=== PATIENT | female | born 1990 | race Caucasian/White ===

== ENCOUNTER → 2019-03-12 | Outpatient (CLI) | payer OTHER ==
--- NOTE | 2019-03-12 08:57 | REP ---
MR BRAIN WITHOUT CONTRAST: HISTORY: Migraine headaches. There are no areas of abnormal signal intensity in the brain. There is no intraparenchymal hemorrhage, infarct, mass or midline shift. The ventricular system is normal in appearance. There is no extracerebral collection. The cerebellar tonsils extend 3 mm inferior through the foramen magnum. The sinuses are clear. IMPRESSION:There is no intracranial lesion. Electronically Signed by Roddy Conroy MD 03/12/2019 09:16 A
== END ==
LOC: M RAD 07:22
PROVIDERS: ATTEND Physician Assistant
DX: G43.109 Migraine with aura, not intractable, without status migrainosus (principal); G44.209 Tension-type headache, unspecified, not intractable; H93.13 Tinnitus, bilateral

== ENCOUNTER → 2019-07-26 | Outpatient (CLI) | payer OTHER ==
[2019-07-26 19:12] LABS: BASO % 0.2 % (0.0-1.0); EOS % 0.3 % (0.0-3.0); HEMATOCRIT 39.6 % (36.0-47.0); HEMOGLOBIN 13.5 g/dl (12.0-15.5); LYMPH # 2.4 10^3/uL (1.5-5.0); LYMPH % 19.1 % (24.0-44.0); MEAN CORPUSCULAR HGB CONC 34.1 g/dl (32.0-36.5); MONO # 0.8 10^3/uL (0.0-0.8); MONO % 6.1 % (0.0-5.0); NEUTROPHILS # 9.2 10^3/uL (1.5-8.5); PLATELET COUNT, AUTOMATED 293 10^3/uL (150-450); WHITE BLOOD COUNT 12.5 10^3/uL (4.0-10.0)
[2019-07-26 21:03] LABS: CHLAMYDIA DNA AMPLIFICATION NEGATIVE (NEGATIVE); GC DNA AMPLIFICATION NEGATIVE (NEGATIVE)
[2019-07-29 10:52] LABS: HIV 1&2 SCREEN CENTAUR NEGATIVE (NEGATIVE); RUBELLA IgG QUALITATIVE IMMUNE (IMMUNE)
[2019-07-29 11:08] LABS: HEPATITIS C VIRUS ABY INDEX 0.2 INDEX (<0.8)
== END ==
LOC: M SMT 14:23
PROVIDERS: ATTEND Advanced Practice Midwife
DX: Z34.81 Encounter for supervision of other normal pregnancy, first trimester (principal); Z3A.00 Weeks of gestation of pregnancy not specified

== ENCOUNTER → 2019-09-17 | Outpatient (CLI) | payer OTHER ==
--- NOTE | 2019-09-18 09:22 | REP ---
OB ULTRASOUND: Real-time sonographic evaluation of the gravid uterus performed. There is a single living intrauterine gestation. The estimated gestational age is 19 weeks 6 days based on today's ultrasound measurement with [facility] 02/05/2020. Biometry and Growth: BPD 46 mm = 19 weeks 6 days, 50th percentile HC 163 mm = 19 weeks 0 days, 26th percentile AC 146 mm = 19 weeks 6 days, 52nd percentile FL 32 mm = 19 weeks 6 days, 52nd percentile HC/AC ratio 1.11 within normal range. Estimated weight 315 grams 47th percentile. SEEN/GROSSLY UNREMARKABLE Lateral ventricles Yes Posterior fossa Yes Upper lip Yes Four-chamber heart Yes LVOT Yes RVOT Yes Stomach Yes Cord insertion Yes Three vessel cord Yes Kidneys Yes Bladder Yes Spine Yes Cervical length: Closed and measures 5.4 cm in length. heart rate: 141 beats per minute. position: Variable Placenta: Anterior and grade 0 with no previa or abruption. Amniotic fluid: Within normal limits. Electronically Signed by Rafael Triplett MD 09/20/2019 05:20 P
== END ==
LOC: M RAD 13:25
PROVIDERS: ATTEND Advanced Practice Midwife
DX: Z36.3 Encounter for antenatal screening for malformations (principal); Z3A.19 19 weeks gestation of pregnancy

== ENCOUNTER → 2019-12-10 | Outpatient (CLI) | payer OTHER ==
[2019-12-10 17:43] LABS: HEMATOCRIT 37.9 % (36.0-47.0); MEAN CORPUSCULAR HEMOGLOBIN 30.1 pg (27.0-33.0); MEAN CORPUSCULAR HGB CONC 34.3 g/dl (32.0-36.5); MEAN CORPUSCULAR VOLUME 87.7 fl (80.0-96.0); PLATELET COUNT, AUTOMATED 260 10^3/uL (150-450); RED BLOOD COUNT 4.32 10^6/uL (4.00-5.40); WHITE BLOOD COUNT 12.5 10^3/uL (4.0-10.0)
== END ==
LOC: M LAB 15:40
PROVIDERS: ATTEND Advanced Practice Midwife
DX: Z34.02 Encounter for supervision of normal first pregnancy, second trimester (principal); Z36.89 Encounter for other specified antenatal screening

== ENCOUNTER → 2019-12-24 | Outpatient (CLI) | payer OTHER ==
--- NOTE | 2019-12-24 18:38 | REP ---
Clinical: Anatomical evaluation. Comparison: Growth 09/17/2019 . Findings: Examination demonstrates a single live intrauterine in breech presentation. motion is identified by technologist. Placenta is noted anterior and grade I I without evidence for placenta previa or abruption. Amniotic fluid volume is normal. Cervix measures 4.0 cm in length and appears closed. No evidence for nuchal cord. Gestational age by first US 33 weeks 6 days with ELIZABETH 02/05/2020 . Gestational age by current measurements 33 weeks 4-day with ELIZABETH 02/07/2020 FHR equals 147 beats per minute. Estimated weight 2217 grams (40th percentile). Amniotic fluid index: 14.0 cm Umbilical cord SD ratio: 2.19 (2.00 - 3.00) Impression: Single live advanced gestation in breech presentation demonstrating appropriate estimated weight. Amniotic fluid volume normal. Electronically Signed by Buck Mckeon MD 12/24/2019 06:29 P
== END ==
LOC: M RAD 17:32
PROVIDERS: ATTEND Advanced Practice Midwife
DX: O26.843 Uterine size-date discrepancy, third trimester (principal); O32.1XX0 Maternal care for breech presentation, not applicable or unspecified; Z3A.33 33 weeks gestation of pregnancy

== ENCOUNTER → 2020-01-22 | Outpatient (REF) | payer OTHER | LOC: M PLALAB 10:18 | PROVIDERS: ATTEND Advanced Practice Midwife | DX: Z36.89 Encounter for other specified antenatal screening (principal); Z3A.00 Weeks of gestation of pregnancy not specified ==

== ENCOUNTER 2020-01-31 09:18 | Outpatient (CLI) | payer OTHER ==
[~2020-01-31] VITALS: Ht 160 cm; Wt 101.1 kg
[2020-01-31 09:45] VITALS: BP 130/79
[2020-01-31] MEDS ORDERED: MAPA500T2 PO (09:47)
[2020-01-31] MEDS ORDERED: PRENTAB9 PO (09:47)
[2020-01-31] MEDS ORDERED: TUMS500C PO (09:47)
[2020-01-31] MEDS ORDERED: TERBUTALINE SULFATE 1 MG/ML VIAL (J3105) SC ONE (10:00)
[2020-01-31 10:18] LABS: HEMATOCRIT 37.7 % (36.0-47.0); MEAN CORPUSCULAR HEMOGLOBIN 29.5 pg (27.0-33.0); MEAN CORPUSCULAR HGB CONC 34.5 g/dl (32.0-36.5); MEAN CORPUSCULAR VOLUME 85.7 fl (80.0-96.0); PLATELET COUNT, AUTOMATED 226 10^3/uL (150-450); WHITE BLOOD COUNT 10.9 10^3/uL (4.0-10.0)
[2020-01-31 10:59] VITALS: BP 132/91
--- NOTE | 2020-01-31 11:42 | ROOPDOC ---
[facility] Report Of Operation Report of Operation DATE OF PROCEDURE: 01/31/20 PREOPERATIVE DIAGNOSES: 1. Intrauterine at 38 weeks estimated gestational age. 2. Malpresentation with the in heath breech presentation. POSTOPERATIVE DIAGNOSES: 1. Intrauterine at 38 weeks estimated gestational age. 2. Malpresentation with the in heath breech presentation. 3. Status post external cephalic version, unsuccessful. OPERATIVE PROCEDURE: Attempted external cephalic version. SURGEON: Bennett Carrera M.D. HIGH SCHOOL COMBINATION TEACHER: Rupa Elam CNM ANESTHESIA: none SPECIMENS: None. ESTIMATED BLOOD LOSS: None. URINE OUTPUT: Undetermined. OPERATIVE FINDINGS: On ultrasound, amniotic fluid index was 10 cm. Posterior placenta. Fetus in heath breech presentation. INDICATION FOR PROCEDURE: Mrs. Tolliver is a 29-year-old 1 who presents at 38+ weeks estimated gestational age for scheduled cephalic version for malpresentation. The patient has been thoroughly counseled for management options to include expected management, primary low transverse section at 39 weeks, and external cephalic version. The risks and benefits were discussed regarding management options. All questions were answered. She desires to have external cephalic version. DESCRIPTION OF OPERATION: The patient was monitored with a nonstress test, which was category 1 with irregular contraction on tocometer. Ultrasound was performed with the above noted findings. The patient was then given 0.25 mg of terbutaline approximately 15 to 20 minutes prior to the procedure. breech was lifted off from the pelvis and two attempts with a forward roll were made which was unsuccessful. heart rate was monitored and noted to be approximately 130 to 140. Two unsuccessful backward rolls were then attempted. A pause in the procedure for approximately 5 minutes to monitor the baby's heart rate and allow the patient to take a break. The heart rate was approximately 130. An additional forward roll was unsuccessful. We unsuccessfully attempted and the procedure was then discontinued. Electronic monitoring was continued for approximately 2 hours with a category 1 tracing and no contractions on tocometer. The patient was then discharged home with precautions, kick count instructions, and follow-up for the next day for a nonstress test. BENNETT CARRERA MD. Jan 31, 2020 11:42
[2020-01-31 11:51] VITALS: BP 140/73
[2020-01-31 12:07] VITALS: BP 118/72
[2020-01-31 12:21] VITALS: BP 117/72
== END 2020-01-31 12:40 | disposition home or self-care (01) ==
LOC: M LDO 09:18
PROVIDERS: ATTEND Obstetrics & Gynecology
DX: O32.1XX1 Maternal care for breech presentation, fetus 1 (principal); Z3A.38 38 weeks gestation of pregnancy
CPT/HCPCS: 59025; 59412; 76815; 85027; 86850; 86900; 86901; G0378; G0463; J3105

== ENCOUNTER 2020-02-01 10:02 | Outpatient (CLI) | payer OTHER ==
[~2020-02-01] VITALS: Ht 160 cm; Wt 101.2 kg
[~2020-02-01 10:02] MED LIST: MAPA500T2 PO; PRENTAB9 PO; TUMS500C PO
[2020-02-01 10:12] VITALS: BP 127/74
== END 2020-02-01 10:35 | disposition home or self-care (01) ==
LOC: M LDO 10:02
PROVIDERS: ATTEND Obstetrics & Gynecology
DX: O32.1XX1 Maternal care for breech presentation, fetus 1 (principal); Z3A.38 38 weeks gestation of pregnancy
CPT/HCPCS: 59025; G0378; G0463

== ENCOUNTER 2020-02-07 05:13 | Inpatient (IN) | payer OTHER ==
[2020-02-07] VITALS (7 sets, daily range): BP systolic 117–144; BP diastolic 65–90
[~2020-02-07] VITALS: Ht 160 cm; Wt 102.9 kg
[2020-02-07] MEDS ORDERED: BICITRA 30ML SOLN UDC PO ONE (06:00)
[2020-02-07] MEDS ORDERED: ceFAZolin SOD 2 GM in IV 1 EA IV ONE (06:00)
[2020-02-07] MEDS ORDERED: LR 1,000 ML IV ONE (06:00)
[2020-02-07 06:22] LABS: HEMATOCRIT 36.3 % (36.0-47.0); HEMOGLOBIN 12.7 g/dl (12.0-15.5); MEAN CORPUSCULAR VOLUME 85.8 fl (80.0-96.0); PLATELET COUNT, AUTOMATED 233 10^3/uL (150-450); RED BLOOD COUNT 4.23 10^6/uL (4.00-5.40)
[2020-02-07] MEDS ORDERED: LR 1,000 ML IV SCH (07:00)
--- NOTE | 2020-02-07 07:59 | ROOPDOC ---
[facility] Report Of Operation Report of Operation DATE OF PROCEDURE: 02/07/20 SURGEON: Bertha Carrera M.D. SEPTIC TANK CLEANER: Monik Elam ANESTHESIA:. Spinal PREOPERATIVE DIAGNOSIS: Breech presentation at 39 weeks POSTOPERATIVE DIAGNOSIS: Breech presentation at 39 weeks ESTIMATED BLOOD LOSS: 500ml URINE OUTPUT: 150 mL INTRAVENOUS FLUIDS: 1400 mL PREOPERATIVE ANTIBIOTICS:. 2 g of Ancef OPERATIVE FINDINGS: Liveborn male infant, Apgars 9 and 9. Weight was 3180 g or 7 lbs. 0 oz. SPECIMENS:. None INDICATIONS FOR PROCEDURE: DESCRIPTION OF PROCEDURE: After informed consent was obtained and written consent was reviewed. The patient was brought to the operating room where spinal anesthesia was placed. She was then placed in the supine position with a left lateral tilt. Madsen catheter was placed and to gravity. Patient was then prepped and draped in the normal sterile fashion. A timeout operating room was performed identifying the patient, procedure be performed as well as drug allergies. Anesthesia was tested and deemed to be adequate. Pfannenstiel skin incision was made and this was carried down to the underlying rectus fascia. The fascia was then scored and this incision was extended bilaterally. The fascia was then dissected off the underlying rectus muscle superiorly and inferiorly. The rectus muscles were then in the midline. The peritoneum is then entered. Vesicouterine peritoneum was then tented and excised and a bladder flap was created. Mobius retractor was then placed. Next, a curvilinear incision was then made in the lower uterine segment. Amniotomy was performed, productive, clear fluid. The head was brought to the level of the incision atraumatically and delivered along the shoulders and corpus. The cord was clamped 2. The infant was brought over to the warmer with a good cry. Placenta was drained and delivered grossly intact. The uterus was cleared of all clots and debris and the uterine incision was then closed in 2 layers using 0 Vicryl, first in a running locking fashion followed by second layer for imbrication. The abdomen suctioned. Surgical sites reinspected and noted be hemostatic. The retractor was then removed. The anterior peritoneum was then reapproximated with 3-0 Vicryl. The rectus muscles were reapproximated 3-0 Vicryl. The fascia was then closed using 0 Vicryl in a running nonlocking fashion. The subcutaneous tissues was then irrigated and suctioned. Subcutaneous tissue was reapproximated using 3-0 Vicryl. Several subdermal stitch is placed using 3-0 Vicryl and the skin was closed with 4-0 Monocryl and subarticular fashion. This incision was then cleaned and dried and was dressed. The patient was then taken to recovery in stable condition. All counts were correct. The couple has decided to name the My surgical services coordinator played in an essential roll during the operation. They assisted with tissue identification retraction, delivery of the , as well as wound closure. BERTHA CARRERA MD. February 07, 2020 07:59
[2020-02-07] MEDS ORDERED: NALBUPHINE HCL 10 MG/ML AMP (J2300) IV PRN (08:11)
[2020-02-07] MEDS ORDERED: METOCLOPRAMIDE INJ 10MG/2ML VIAL (J2765 PER 1) IV PRN (08:11)
[2020-02-07] MEDS ORDERED: diphenhydrAMINE 50MG/ML VIAL (J1200) IV PRN ×2 (08:11→09:30)
[2020-02-07] MEDS ORDERED: ONDANSETRON 4MG/2ML VIAL IV PRN ×3 (08:11→09:30)
[2020-02-07] MEDS ORDERED: NALOXONE INJ 0.4MG/1ML VIAL (J2310 PER 1MG) IV PRN ×2 (08:11)
[2020-02-07] MEDS ORDERED: dexameTHASONE 4 MG/ML 1ML VIAL (J1100 PER 1MG) As Ordered ONE (08:29)
[2020-02-07] MEDS ORDERED: ONDANSETRON 4MG/2ML VIAL As Ordered ONE (08:29)
[2020-02-07] MEDS ORDERED: OXYTOCIN INJ 10 UNITS/ML VIAL (J2590) As Ordered ONE (08:29)
[2020-02-07] MEDS ORDERED: METOCLOPRAMIDE INJ 10MG/2ML VIAL (J2765 PER 1) As Ordered ONE (08:29)
[2020-02-07] MEDS ORDERED: MORPHINE PRES-FREE INJ 10 MG/10 ML VIAL (J2274) As Ordered ONE (08:29)
[2020-02-07] MEDS ORDERED: PHENYLephrine HCL 500 MCG/5 ML (100MCG/ML) SYRINGE (J2370) As Ordered ONE (08:29)
[2020-02-07] MEDS ORDERED: OXYTOCIN DRIP 30 UNITS in IV 1 EA IV SCH (08:48)
[2020-02-07] MEDS ORDERED: KETOROLAC 60 MG/2 ML VIAL As Ordered ONE (08:48)
[2020-02-07] MEDS ORDERED: IBUP80TA PO (08:52)
[2020-02-07] MEDS ORDERED: PERCOCET PO (08:52)
[2020-02-07] MEDS: DOCUSATE SODIUM 100 MG CAP PO SCH ×2 (09:00→21:13)
[2020-02-07] MEDS: PRENATAL VITAMINS CHEWABLE TABLET PO SCH (09:00)
[2020-02-07] MEDS ORDERED: RHOGAM 300 MCG (1500 IU) INJ (J2790) IM SCH (09:00)
[2020-02-07] MEDS ORDERED: MEASLES,MUMPS,RUBELLA VACCINE INJ (MMR-II) (90707) SC SCH (09:00)
[2020-02-07] MEDS ORDERED: MOM 30ML SUSPENSION UDC PO PRN (09:00)
[2020-02-07] MEDS ORDERED: PERCOCET 5MG/325MG TAB PO PRN (09:00)
[2020-02-07] MEDS ORDERED: OXYTOCIN 30 UNITS IN 0.9% NaCl 500ML IV BAG (J2590) As Ordered ONE (09:28)
[2020-02-07] MEDS ORDERED: fentaNYL 100 MCG/2 ML INJECTION (J3010) IV PRN (09:30)
[2020-02-07] MEDS ORDERED: MEPERIDINE INJ 25 MG/ML VIAL (J2175) IV PRN (09:30)
[2020-02-07] MEDS ORDERED: HYDROMORPHONE HCL 0.5 MG/ 0.5 ML SYRINGE (J1170 PER 1) IV PRN (09:30)
[2020-02-07] MEDS ORDERED: oxyCODONE 5MG TAB PO PRN (09:30)
[2020-02-07] MEDS: LR 1,000 ML IV SCH ×2 (14:03→17:30)
[2020-02-07] MEDS: KETOROLAC 30 MG/ML 1ML VIAL IV SCH ×2 (15:25→21:13)
[2020-02-08] MEDS: KETOROLAC 30 MG/ML 1ML VIAL IV SCH (03:18)
[2020-02-08 03:50] VITALS: BP 122/61
[2020-02-08 06:00] VITALS: BP 119/65
[2020-02-08 07:15] LABS: HEMATOCRIT 27.6 % (36.0-47.0); MEAN CORPUSCULAR HEMOGLOBIN 29.7 pg (27.0-33.0); MEAN CORPUSCULAR HGB CONC 33.7 g/dl (32.0-36.5); MEAN CORPUSCULAR VOLUME 88.2 fl (80.0-96.0); PLATELET COUNT, AUTOMATED 185 10^3/uL (150-450); RED BLOOD COUNT 3.13 10^6/uL (4.00-5.40); WHITE BLOOD COUNT 14.6 10^3/uL (4.0-10.0)
--- NOTE | 2020-02-08 07:16 | IPNPDOC ---
Text Note Date of Service The patient was seen on 02/08/20. NOTE PO #1 Feels well. OOB. Adequate pain management. . Voiding VSS, afebrile, normotensive Breasts soft, nipples intact Fundus firm Dressing intact with scant old drainage Lochia rubra scant without odor PO #1 Routine care. Consider discharge in am VS,Fishbone, I+O VS, Fishbone, I+O Vital Signs Date Time Temp Pulse Resp B/P (MAP) Pulse Ox O2 Delivery O2 Flow Rate FiO2 02/08/20 06:00 97.2 72 16 119/65 (83) 97 Room Air I&O- Last 24 Hours up to 6 AM 02/08/20 06:00 Intake Total 1150 ml Output Total 1850 ml Balance -700 ml Candy Hernandez CNM February 08, 2020 07:16
[2020-02-08 07:21] LABS: HEMOGLOBIN 9.3 g/dl (12.0-15.5)
[2020-02-08 10:07] VITALS: BP 123/76
[2020-02-08] MEDS: IBUPROFEN 800 MG TAB PO SCH ×2 (11:38→18:46)
[2020-02-08] MEDS: PRENATAL VITAMINS CHEWABLE TABLET PO SCH (11:38)
[2020-02-08] MEDS: DOCUSATE SODIUM 100 MG CAP PO SCH ×2 (11:38→21:39)
[2020-02-08 14:06] VITALS: BP 120/79
[2020-02-08] MEDS: PERCOCET 5MG/325MG TAB PO PRN (17:02)
[2020-02-08 18:06] VITALS: BP 120/78
[2020-02-08 22:01] VITALS: BP 135/77
[2020-02-09 02:21] VITALS: BP 127/62
[2020-02-09] MEDS: IBUPROFEN 800 MG TAB PO SCH ×2 (03:06→10:51)
[2020-02-09 06:24] VITALS: BP 126/83
[2020-02-09] MEDS: PERCOCET 5MG/325MG TAB PO PRN (06:31)
[2020-02-09] MEDS: PRENATAL VITAMINS CHEWABLE TABLET PO SCH (08:56)
[2020-02-09] MEDS: DOCUSATE SODIUM 100 MG CAP PO SCH (08:56)
== END 2020-02-09 13:05 | disposition home or self-care (01) | DRG 788 ==
LOC: M LDI 05:13 → M OBS 10:24
PROVIDERS: ADMIT Obstetrics & Gynecology; ATTEND Obstetrics & Gynecology
PROC: 10D00Z1 Extraction of Products of Conception, Low, Open Approach (ICD-10-PCS; principal; 2020-02-07 07:30)
DX: O32.1XX0 Maternal care for breech presentation, not applicable or unspecified (principal); Z37.0 Single live birth; Z3A.39 39 weeks gestation of pregnancy

== ENCOUNTER → 2020-10-22 | Outpatient (REF) | payer OTHER ==
[~2020-10-22] MED LIST changes: +IBUP80TA PO; +PERCOCET PO
== END ==
LOC: M SFHCWAGY 18:24
PROVIDERS: ATTEND Obstetrics & Gynecology
DX: Z01.419 Encounter for gynecological examination (general) (routine) without abnormal findings (principal)